=== PATIENT | male | born 1995 | race Caucasian/White ===

== ENCOUNTER 2018-07-26 14:32 | Emergency (ER) | payer OTHER ==
[~2018-07-26] VITALS: Ht 167.6 cm; Wt 68.0 kg
[2018-07-26] MEDS ORDERED: FLONASE ALLERG9.9 ML NS (16:54)
[2018-07-26] MEDS ORDERED: TESSALON PERLE100 M1 PO (16:54)
== END 2018-07-26 17:00 | disposition home or self-care (01) ==
LOC: ED 14:32
DX: J06.9 Acute upper respiratory infection, unspecified (principal); H92.02 Otalgia, left ear

== ENCOUNTER 2018-09-03 | Emergency (ER) | payer OTHER ==
[~2018-09-03] MED LIST: FLONASE ALLERG9.9 ML NS; TESSALON PERLE100 M1 PO
[2018-09-03] MEDS ORDERED: PREDNISONE10 MG PO (11:17)
[2018-09-03] MEDS ORDERED: CLARITIN10 MG PO (11:17)
[2018-09-03] MEDS ORDERED: FLONASE ALLERG9.9 ML NAS (11:17)
== END 2018-09-03 14:20 | disposition home or self-care (01) ==
DX: B34.9 Viral infection, unspecified (principal); F17.200 Nicotine dependence, unspecified, uncomplicated

== ENCOUNTER 2018-10-10 22:25 | Emergency (ER) | payer OTHER ==
[~2018-10-10] VITALS: Wt 70.3 kg
[~2018-10-10 22:25] MED LIST changes: +CLARITIN10 MG PO; +FLONASE ALLERG9.9 ML NAS; +PREDNISONE10 MG PO
[2018-10-10] MEDS ORDERED: ONDANSETRON4 MG SL (22:31)
== END 2018-10-11 03:06 | disposition home or self-care (01) ==
LOC: ED 22:25
DX: R11.0 Nausea (principal); R53.83 Other fatigue; R50.9 Fever, unspecified

== ENCOUNTER 2019-02-10 22:46 | Emergency (ER) | payer OTHER ==
[~2019-02-10] VITALS: Ht 167.6 cm; Wt 68.0 kg
[~2019-02-10 22:46] MED LIST changes: +ONDANSETRON4 MG SL
== END 2019-02-11 00:10 | disposition home or self-care (01) ==
LOC: ED 22:46
DX: S06.0X0A Concussion without loss of consciousness, initial encounter (principal); W20.8XXA Other cause of strike by thrown, projected or falling object, initial encounter; Y93.89 Activity, other specified; Y92.69 Other specified industrial and construction area as the place of occurrence of the external cause; Y99.8 Other external cause status

== ENCOUNTER 2019-03-19 23:59 | Emergency (ER) | payer OTHER ==
[~2019-03-19] VITALS: Ht 167.6 cm; Wt 68.0 kg
--- NOTE | ~2019-03-19 | EKG ---
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
[2019-03-20] MEDS ORDERED: VISTARIL25 MG PO (00:28)
== END 2019-03-20 00:55 | disposition home or self-care (01) ==
LOC: ED 23:59
DX: F41.9 Anxiety disorder, unspecified (principal); F17.200 Nicotine dependence, unspecified, uncomplicated

== ENCOUNTER 2019-06-12 19:00 | Emergency (ER) | payer OTHER ==
[~2019-06-12] VITALS: Ht 167.6 cm; Wt 73.9 kg
[~2019-06-12 19:00] MED LIST changes: +VISTARIL25 MG PO
[2019-06-12] MEDS ORDERED: AMOXICILLIN500 M2 PO (19:25)
[2019-06-12] MEDS ORDERED: ZYRTEC10 MG PO (19:25)
[2019-06-12] MEDS ORDERED: FLONASE ALLERG9.9 ML NAS (19:25)
== END 2019-06-12 19:32 | disposition home or self-care (01) ==
LOC: ED 19:00
DX: J01.90 Acute sinusitis, unspecified (principal)